=== PATIENT | male | born 1995 | race Caucasian/White ===

== ENCOUNTER 2022-06-19 08:51 | Outpatient (CLI) | payer BC, SELFPAY ==
[2022-06-19 13:14] LABS: Cholesterol* 235 mg/dL (90-199)
[2022-06-19 13:15] LABS: HDL Cholesterol* 54 mg/dL (>=40); LDL Cholesterol Calculated 152 mg/dL (<100); Triglycerides* 147 mg/dL (40-149)
[2022-06-20 14:14] LABS: Glucose* 83 mg/dL (60-115)
== END 2022-06-19 08:52 | disposition home or self-care (01) ==
PROVIDERS: PCP Emergency Medicine; Visit Provider Emergency Medicine
DX: Z00.00 Encounter for general adult medical examination without abnormal findings (principal); Z11.1 Encounter for screening for respiratory tuberculosis; Z13.1 Encounter for screening for diabetes mellitus; Z13.6 Encounter for screening for cardiovascular disorders
CPT/HCPCS: 80061; 82947; 86480

== ENCOUNTER 2023-07-11 08:03 | Outpatient (CLI) | payer BC, SELFPAY | END 2023-07-11 08:04 | disposition home or self-care (01) | LOC: NFLDREF 07-14 08:53 | PROVIDERS: PCP Emergency Medicine; Referring Provider Emergency Medicine; Visit Provider Emergency Medicine | DX: Z00.00 Encounter for general adult medical examination without abnormal findings (principal); E78.5 Hyperlipidemia, unspecified; Z13.1 Encounter for screening for diabetes mellitus | CPT/HCPCS: 80048; 80061 ==

== ENCOUNTER 2024-08-11 08:38 | Outpatient (CLI) | payer BC, SELFPAY | END 2024-08-11 08:39 | disposition home or self-care (01) | PROVIDERS: PCP Emergency Medicine; Visit Provider Emergency Medicine | DX: Z00.00 Encounter for general adult medical examination without abnormal findings (principal); Z13.6 Encounter for screening for cardiovascular disorders; Z13.1 Encounter for screening for diabetes mellitus | CPT/HCPCS: 80061; 82947 ==